=== PATIENT | female | born 1960 | race Caucasian/White ===

== ENCOUNTER → 2016-11-09 15:10 | Outpatient (CLI) | payer OTHER, SELFPAY ==
--- NOTE | 2018-11-09 | LES_PTH ---
PATIENT: JAYRO WRIGHT LOC: [facility] U#:[id number] AGE/SX: 65/F ROOM: RE11/09/[address]: Dr. Marcio Bah MD : 1960 BED: DIS: SPEC #: [id number] RECD: 11/09/18 19:17 STATUS: WHIT MACK #: [id number] DEVON: 11/09/18 00:[address]: Marcio Bah DEPT: SURGICAL PATHOLOGY RECD BY: Sylvia Conklin ENTERED: 11/10/18 08:41 SP TYPE: Lesion OTHR DR: Dr. Anders Lambert, DO Tissues: Skin of nose, NOS Procedures: Surgery Specimen Level IV HEADER OPERATION: Intranasal lesion - right PRE-OP DIAGNOSIS: Intranasal lesion - right TISSUE SUBMITTED: Right nostril lesion MICROSCOPIC DIAGNOSIS Right nostril lesion, biopsy: A piece of skin with focal hyperkeratosis and reactive changes. Negative for malignancy. SJ:eldon 11/13/18 COMMENT Clinical correlation and appropriate follow up are necessary. MICROSCOPIC DESCRIPTION Slides are reviewed. GROSS DESCRIPTION Received is one container labeled with the patient's name and not further designated. The specimen consists of a piece of ch-white skin measuring 0.2 x 0.1 x 0.1 cm. The specimen is totally submitted in one cassette. / RYAN:eldon 11/10/18 TC:5 CPT: 10194
== END ==
PROVIDERS: Family Provider Family Medicine; PCP Family Medicine; Referring Provider Otolaryngology; Visit Provider Otolaryngology
DX: J34.89 Other specified disorders of nose and nasal sinuses (principal)
CPT/HCPCS: 88305